=== PATIENT | male | born 1985 | race Caucasian/White ===

== ENCOUNTER 2018-07-29 16:30 | Outpatient (CLI) | payer OTHER ==
--- NOTE | 2018-07-29 19:07 | RAD ---
TWO TO THREE VIEW LUMBAR SPINE SERIES: 07/29/18 INDICATION: Low back pain. FINDINGS: Vertebral body heights and alignment are maintained. Disc spaces heights are preserved. IMPRESSION: No acute osseous abnormality of the lumbar spine. POS: [facility]
== END 2018-07-29 16:31 | disposition home or self-care (01) ==
LOC: SCSRAD 16:30
PROVIDERS: ATTEND Chiropractor
DX: M54.5 Low back pain (principal)
CPT/HCPCS: 72100